=== PATIENT | male | born 1985 | race Caucasian/White ===

== ENCOUNTER 2021-05-30 08:52 | Outpatient (CLI) | payer OTHER, SELFPAY | END 2021-05-30 08:53 | disposition home or self-care (01) | PROVIDERS: PCP Internal Medicine; Visit Provider Internal Medicine | DX: H91.93 Unspecified hearing loss, bilateral (principal) | CPT/HCPCS: 92557; 92567 ==

== ENCOUNTER 2022-06-05 11:30 | Outpatient (CLI) | payer OTHER, SELFPAY | END 2022-06-05 11:31 | disposition home or self-care (01) | LOC: ANHBWCAUD 11:32 | PROVIDERS: PCP Internal Medicine; Visit Provider Internal Medicine | DX: H90.3 Sensorineural hearing loss, bilateral (principal) | CPT/HCPCS: 92557; 92567 ==

== ENCOUNTER 2025-01-18 12:43 | Outpatient (CLI) | payer OTHER, SELFPAY ==
--- OUTSIDE RECORDS SUMMARY | 2025-01-18 14:01 | XMS_ITS | Encounter Summary ---
Author Organization [facility] Address [address] [facility] [place] [address] Phone Care Team Providers Care Double End Chucking Machine Operator Name Role Phone Davi Goodson MD Primary Care Provider [phone] Kalli Brown CIGAR BINDER, SINGING TELEGRAM PERFORMER Unavailable Alva Barros CIGAR BINDER, SINGING TELEGRAM PERFORMER Unavailable Reason for Visit * Reason Comments Medication Refill Encounter Details Date Type Department Care Team (Late st Contact Info) Description 10/20/2021 Refill [facility] - G[facility]enterology - [place] [address] [place] [id number] Whit Flores Mary Beth, PAC [address] [place] [address] Medication Refill Social History Tobacco Use Types Packs/Day Years Used Date Smoking Tobacco: Never Smokeless Tobacco: Never Alcohol Use Standard Drinks/Week Comments Yes 0 (1 standard drink = 0.6 oz pur e alcohol) with mom and dad PHQ-2 Answer Date Recorded PHQ-2 Score 4 12/09/2018 Sexually Active Control Partners Comments Not Currently Sex and Gender Information Value Date Recorded Sex Assigned at Not on file Legal Sex Male 10:29 AM CDT Gender Identity Not on file Sexual Orientation Not on file Occupation Industry Job Start Date Job End Date [employer] works at [employer] Not on file N ot on file Not on file COVID-19 Exposure Response Date Recorded In the last 10 days, have yo u been in contact with someone who was confirmed or suspected to have Coronavirus/COVID-19? No / Unsure 10/16/2021 10:15 AM CDT documented as of this encounter Miscellaneous Notes * Telephone Encounter - Deja Baez RN - 10/20/2021 11:04 AM CDT Medication refilled and signed per [facility] chronic medication standing order for pediatric and adult patients. documented in this encounter Plan of Treatment Not on file documented as of this encounter Visit Diagnoses Diagnosis Chronic idiopathic constipation Unspecified constipation documented in this encounter Additional Health Concerns Assessment Noted Time PHQ-9 Depression Total Score: 4 09/30/19 19 11:04 AM CDT documented as of this encounter Care Teams Double End Chucking Machine Operator Relationship Specialty Start Date End Date Davi Goodson MD [address] [place] [address] PCP - General Internal Medicine 12/15/19 Kalli Brown APRN, SINGING TELEGRAM PERFORMER [address] [address] [place] [address] Nurse Practitioner Psychiatry 02/26/22 Alva Barros APRN, SINGING TELEGRAM PERFORMER [address] [place] [address] Nurse Practitioner Advanced Practice Nurse 08/07/22 documented as of this encounter
--- OUTSIDE RECORDS SUMMARY | 2025-01-18 14:02 | XMS_ITS | Clinical Summary ---
Author Organization [facility] Address [address] [place] [address] Phone Care Team Providers Care End Matcher Name Role Phone Davi Goodson MD Primary Care Provider [phone] Kalli Brown EVENTS TRAFFIC CONTROLLER, WIRE TAPER Unavailable Alva Barros EVENTS TRAFFIC CONTROLLER, WIRE TAPER Unavailable Allergies Active Allergy Reactions Criticality Noted Date Comments Bee Venom Hives,Swelling 10/20/2015 Medications melatonin 3 MG Tablet Take 3 mg by mouth nightly. Active ibuprofen (MOTRIN) 200 MG Tablet Take 2 Tabs by mouth every 6 hours as needed for Fever. 30 Tab 08/18/19 20 Active Invega Sustenna 234 MG/1.5ML Suspension Prefilled Syringe 234 mg every 30 days. 01/27/20 20 Active divalproex (DEPAKOTE ER) 500 MG TABLET SR 24 HR 1,000 mg nightly. 09/10/19 21 Active Robafen Mucus/Chest Congestion 200 MG/10ML Liquid every 4 hours as needed. 08/02/19 21 Active bisacodyl 5 MG Tablet Delayed Response 10 mg as needed. 08/09/19 21 Active acetaminophen (TYLENOL) 325 MG Tablet Take 650 mg by mouth every 4 hours as needed. Active famotidine (PEPCID) 40 MG TabletIndication s:Gastroesophage al reflux disease without esophagitis Take 1 Tablet by mouth 2 times daily. 180 Tablet 3 09/23/19 21 Active Stomach Relief 525 MG/30ML Suspension as needed. 02/07/20 21 Active Paliperidone 3 MG TABLET SR 24 HR nightly. Take 7 days before next Invega injection. 07/01/19 22 Active EPINEPHrine (EPIPEN) 0.3 MG/0.3ML Solution Auto-injectorInd ications:Bee sting allergy 0.3 mL by Intramuscular route once as needed for Anaphylaxis. Bee sting 1 mL 1 12/20/19 22 Active Wheat Dextrin (Benefiber Drink Mix) PackIndications: Chronic idiopathic constipation Take 1 Packet by mouth nightly. 180 Packet 3 02/27/20 22 Active polyethylene glycol (GLYCOLAX) 17 GM/SCOOP PowderIndication s:Chronic idiopathic constipation DISSOLVE 17G (1 SCOOP ) TWICE DAILY IN 4OZ TO 8OZ OF WATER OR OTHER LIQUID. 7AM-9PM 510 g 10 05/31/19 23 Active sertraline (ZOLOFT) 50 MG Tablet 10/10/19 23 Active traZODone (DESYREL) 150 MG Tablet 10/10/19 23 Active Therems-M Tablet 10/10/19 23 Active hydrOXYzine (ATARAX) 50 MG Tablet 10/10/19 23 Active Wheat Dextrin (Benefiber On The GO) Powder DISSOLVE 1 PACKET IN LIQUID AND TAKE BY MOUTH TWICE DAILY. 7AM-9PM 56 Packet 12/09/19 24 Active Active Problems Problem Noted Date Diagnosed Date Hyperlipidemia 02/26/2022 Bee sting allergy 12/19/2021 Stone's esophagus without dysplasia 09/22/2020 Chronic idiopathic constipation 09/22/2020 Anxiety 05/26/2019 Asperger's disorder 05/26/2019 Autism 05/26/2019 Bipolar 1 disorder 05/26/2019 Insomnia 05/26/2019 ADHD (attention deficit hyperactivity disorder) Mood disorder Overview (10/20/2015): bipolar disorder Mild intellectual disabilities Major depressive disorder GERD (gastroesophageal reflux disease) Immunizations Immunization Administration Dates Next Due Covid-19, Mrna, Lnp-s, Pf, 3 0 Mcg/0.3 Ml Dose ([employer]) 05/24/2020,05/03/2020 DTP Vaccine 12/17/1991, 9,07/06/1987,1987,02/16/1987 Influenza Vaccine, Quadrivalent, PF 12/23,12/29/2020,02/17/2020,2017,01/02/2017 Influenza, Injectable, Mdck,quadrivalent,with Preservative 12/31/2018 Influenza, Injectable, Quadrivalent 01/20/2016 MMR Vaccine 12/17/1991,03/16/1988 OPV 12/17/1991, 9,07/06/1987,1987,02/16/1987 TD VACCINE 10/20/2015 Family History Medical History Relation Name Comments Migraines Mother Diabetes Paternal Grandfather Relation Name Status Comments Father Alive Mother Alive Paternal Grandfather Social History Tobacco Use Types Packs/Day Years Used Date Smoking Tobacco: Never Smokeless Tobacco: Never Tobacco Cessation:Counseling Given: Not Answered Alcohol Use Standard Drinks/Week Comments Yes 0 [...] Industry Job Start Date Job End Date longterm works at [employer] Not on file N ot on file Not on file Last Filed Vital Signs Vital Sign Reading Time Taken Comments Blood Pressure 106/86 10/22/2022 1:15 PM CDT Pulse 117 10/22/2022 1:15 PM CDT Temperature 36.3 C (97.4 F) 10/22/2022 1:15 PM CDT Respiratory Rate 16 10/22/2022 1:15 PM CDT Oxygen Saturation 95% 10/22/2022 1:15 PM CDT Inhaled Oxygen Concentration - - Weight 96.9 kg (213 lb 9 oz) 10/22/2022 1:15 PM CDT Height 175.3 cm (5' 9) 10/22/2022 1:15 PM CDT Body Mass Index 31.54 10/22/2022 1:15 PM CDT Plan of Treatment Health Maintenance Due Date Last Done Comments Hepatitis C Virus (HCV) Screening 1986 Hepatitis B Immunization (1 of 3 - 19+ 3-dose series) 2005 Human Papillomavirus (HPV) Immunization (1 - 3-dose SCDM series) 2013 Influenza Immunization (#1) 11/23/202403/2024, 01/04/2022, 12/29/2020, Additional history exists SARS-COV-2 Immunization ( season) 2024 12/29/2020, 05/24/2020, 05/03/2020 DTaP/Tdap/Td Immunization (6 - Tdap) 10/19/2025 10/20/2015, 12/17/1991, 07/13/1988, Additional history exists Postponed from 10/21/2015 (Lower Priority for Now) Respiratory Syncytial Virus (RSV) Immunization (Adult) (1 - 1-dose 75+ series) 2061 Meningococcal Immunization (ACWY) Aged Out No longer eligible based on patient's age to complete this topic Pneumococcal Immunization Combined Aged Out No longer eligible based on patient's age to complete this topic Rotavirus Immunization Aged Out No lo nger eligible based on patient's age to complete this topic Insurance MEDICAID [place] Care Teams End Matcher Relationship Specialty Start Date End Date Davi Goodson MD [address] [place] [address] PCP - General Internal Medicine 12/15/19 Kalli Brown APRN, WIRE TAPER [address] [place] [address] [place] [address] Nurse Practitioner Psychiatry 02/26/22 Alva Barros APRN, WIRE TAPER [address] [place] [address] Nurse Practitioner Advanced Practice Nurse 08/07/22
--- OUTSIDE RECORDS SUMMARY | 2025-01-18 14:02 | XMS_ITS | Encounter Summary ---
Author Organization [facility] Address [address] [facility] [place] [address] Phone Care Team Providers Care Medical Office Scheduler Name Role Phone Davi Goodson MD Primary Care Provider [phone] Kalli Brown DESKTOP ARCHITECT, WOOD TYPE FINISHER Unavailable Alva Barros APRN, WOOD TYPE FINISHER Unavailable Reason for Visit * Reason Comments Medication Refill Encounter Details Date Type Department Care Team (Late st Contact Info) Description 05/29/2022 Refill [facility] - G[facility]enterology - [place] [address] [place] [address] Alva Barros APRN, WOOD TYPE FINISHER [address] [place] [address] Medication Refill Social History Tobacco Use Types [...] Industry 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 [employer] Not on file N ot on file Not on file documented as of this encounter Miscellaneous Notes * Telephone Encounter - Genna Elkisn, RN - 05/30/2022 8:25 AM CST duplicate ITECTURAL MODELER documented in this encounter Plan of Treatment Not on file documented as of this encounter Visit Diagnoses Diagnosis Chronic idiopathic constipation Unspecified constipation documented in this encounter Additional Health Concerns Assessment Noted Time PHQ-9 Depression Total Score: 4 09/30/19 19 11:04 AM CDT documented as of this encounter Care Teams Medical Office Scheduler Relationship Specialty Start Date End Date Davi Goodson MD [address] [place] [address] PCP - General Internal Medicine 12/15/19 Kalli Brown APRN, WOOD TYPE FINISHER [address] [place] [address] [address] [place] [address] Nurse Practitioner Psychiatry 02/26/22 Alva Barros APRN, WOOD TYPE FINISHER [address] [place] [address] Nurse Practitioner Advanced Practice Nurse 08/07/22 documented as of this encounter
--- OUTSIDE RECORDS SUMMARY | 2025-01-18 14:02 | XMS_ITS | Encounter Summary ---
Author Organization [facility] Address [address] [facility] [place] [address] Phone Care Team Providers Care Keypuncher Name Role Phone Davi Goodson MD Primary Care Provider [phone] Kalli Brown NURSING INFORMATICS CLINICAL ANALYST, CIAIO LUMITE INJECTOR Unavailable Alva Barros NURSING INFORMATICS CLINICAL ANALYST, CIAIO LUMITE INJECTOR Unavailable Reason for Visit * Reason Comments Medication Refill Encounter Details Date Type Department Care Team (Late st Contact Info) Description 04/26/2022 Refill [facility] - Gastroenterology - [place] [address] [place] [id number] Whit Flores Mary Beth, PAC [address] [place] [address] Medication Refill Social History Tobacco Use Types [...] 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 polyethylene glycol (GLYCOLAX) 17 GM/SCOOP Powder [Pharmacy Med Name: POLYETHYLENE GLYCOL 3350 POWD] 510 g 0 Sig: DISSOLVE 17G (1 SCOOP ) TWICE DAILY IN 4OZ TO 8OZ OF WATER OR OTHER LIQUID. 7AM-9PM Last fill: 10/20/2021 Patients last OV with GI: 07/26/2021 Next Office Visit with GI: 08/07/2022 with Alva Barros BOILER TENDER. Glycolax order pended, routing to provider due to last provider is no longer with GI office. Pleasereview. TOLOGY SPECIALIST documented in this encounter Plan of Treatment Not on file documented as of this encounter Visit Diagnoses Diagnosis Chronic idiopathic constipation Unspecified constipation documented in this encounter Additional Health Concerns Assessment Noted Time PHQ-9 Depression Total Score: 4 09/30/19 19 11:04 AM CDT documented as of this encounter Care Teams Keypuncher Relationship Specialty Start Date End Date Davi Goodson MD [address] [place] [address] PCP - General Internal Medicine 12/15/19 Kalli Brown APRN, CIAIO LUMITE INJECTOR [address] [place] [address] [place] [address] Nurse Practitioner Psychiatry 02/26/22 Alva Barros APRN, CIAIO LUMITE INJECTOR [address] [place] [address] Nurse Practitioner Advanced Practice Nurse 08/07/22 documented as of this encounter
== END 2025-01-18 12:44 | disposition home or self-care (01) ==
PROVIDERS: PCP Internal Medicine; Visit Provider Physician Assistant
DX: Z01.10 Encounter for examination of ears and hearing without abnormal findings (principal)
CPT/HCPCS: 92557; 92567